=== PATIENT | female | born 1965 | race Caucasian/White ===

== ENCOUNTER 2020-10-13 17:42 | Emergency (ER) | payer MEDICARE, MEDICAID, SELFPAY ==
[2020-10-13 18:03] VITALS: BP 130/91; PULSE 98; RESP 18; TEMP 36.8; O2SAT 93
--- NOTE | 2020-10-13 18:04 | ED.DENTAL ---
HPI - Dental/Oral General Source: patient Mode of arrival: ambulatory Limitations: no limitations History of Present Illness HPI Narrative: Patient comes in with complaints of toothache at #30 TOOTH. She has had ongoing sharp pain, moderately severe, for the last 3 days. Tylenol has not helped the duncan at home. Complaint: tooth pain Onset (ago): day(s) Duration: constant Severity: moderate Relieving factors: nothing Exacerbating factors: chewing Context: history of dental caries Related Data Allergies Allergy/AdvReac Type Severity Reaction Status Date / Time No Known Allergies Allergy Verified 07/24/18 12:40 Review of Systems Constitutional: Constitutional: Reports no additional constitutional complaints Eyes: Eyes: Reports no additional eye complaints ENT: Reports system reviewed and no additional complaints, except as documented Cardiovascular: Cardiovascular: Reports no additional cardiovascular complaints Respiratory: Respiratory: Reports no additional respiratory complaints Gastrointestinal: Gastrointestinal: Reports no additional gastrointestinal complaints Genitourinary: Genitourinary: Reports no additional female genitourinary complaints Musculoskeletal: Musculoskeletal: Reports no additional musculoskeletal complaints Integumentary/Breasts: Skin/Breast: Reports system reviewed and no additional complaints, except as docu Neurologic: Reports system reviewed and no additional complaints, except as documented Psychiatric: Psychiatric: Reports no additional psychiatric complaints Endocrine: Endocrine: Reports no additional endocrine complaints Hematologic/Lymphatic: Hematologic/Lymphatic: Reports no additional hematologic/lymphatic complaints Allergic/Immunologic: Allergic/Immunologic: Reports no additional allergic/immunologic complaints [facility] Past Medical History Medical History Bipolar 1 disorder Surgical History Surgical History H/O: hysterectomy Family History Family History Father Leukemia Mother Heart disease Pacemaker Social History Social History (Updated 10/13/20 @ 19:23 by Joel Tapia MD) Alcohol intake: never Substance use: never Gender identity (if verbalized by the patient): Female Sexual Orientation (if Verbalized by the Patient): Straight or Heterosexual Exam Const: General: healthy appearing, no acute distress and alert Orientation/consciousness: patient oriented x3 HENMT: Head: normal to inspection Ears: external ears normal General nose exam: Normal external nose present Mouth: Yes Normal oral and palatal mucosa present Throat: posterior oropharynx normal Other: Tooth #30 appears to be abscessed. Eyes: Conjunctivae: conjunctivae normal Neck: Neck: normal visual inspection Chest: Chest palpation & inspection: normal inspection of the chest Resp: Effort & Inspection: normal respiratory effort Auscultation: clear to auscultation bilaterally Cardio: Rate: regular rate Rhythm: regular rhythm GI: GI Palp: Yes Soft to palpation (nontender) Back/Spine/Pelvis: Back: no CVA tenderness Skin: General skin exam: normal color Neuro: General: patient oriented x3 and moves all extremities Extrem: General: normal to inspection Psych: Appearance: grossly normal Mental Status: mental status grossly normal Thought content: Yes Normal thought content present Course Course Emergency Course: she was examined, given amoxicillin, and discharged with a script for amoxicillin. Vital Signs Vital signs: Vital Signs Temperature 36.8 C 10/13/20 18:03 Pulse Rate 98 10/13/20 18:03 Respiratory Rate 18 10/13/20 18:03 Blood Pressure 130/91 H 10/13/20 18:03 Pulse Oximetry 93 10/13/20 18:03 Temperature 36.8 C 10/13/20 18:03 Pulse Rate 98 10/13/20 18:03 Respiratory Rat
[2020-10-13] MEDS: AMOXICILLIN 500 MG CAPSULE 1000 MG PO (18:14)
== END 2020-10-13 18:20 | disposition home or self-care (01) ==
PROVIDERS: Emergency Provider Emergency Medicine; PCP Family Medicine
DX: K04.7 Periapical abscess without sinus (principal)
CPT/HCPCS: 99283; A9270

== ENCOUNTER 2022-04-05 14:00 | Emergency (ER) | payer MEDICARE, MEDICAID, SELFPAY ==
[2022-04-05 14:17] VITALS: BP 119/86; PULSE 84; RESP 16; TEMP 36.4; O2SAT 98
[2022-04-05 14:25] VITALS: O2SAT 98
--- NOTE | 2022-04-05 14:41 | ED.URI ---
HPI - URI/Sore Throat General Chief Complaint: Upper Respiratory Infection Stated Complaint: congestion-stage 4 brain cancer Time Seen by Provider: 04/05/22 14:19 History of Present Illness HPI Narrative: Patient is a 56-year-old female here for evaluation of sinus congestion, sore throat, dry cough and diffuse HAWKINS x 3 days. Wants to get viral swabs as she has immunotherapy tomorrow for brain cancer. She follows with a [facility] doctor at [facility]. 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 Denies chest pain, shortness of breath, fevers, chills, nausea or vomiting. Related Data Allergies Allergy/AdvReac Type Severity Reaction Status Date / Time No Known Allergies Allergy Verified 04/05/22 14:09 Review of Systems Review of Systems: Gen.: Denies fevers or chills Eyes: Denies eye pain or visual change ENT: Reports congestion, sore throat, headache Respiratory: Denies shortness of breath or cough CV: Denies chest pain or palpitations GI: Denies abdominal pain nausea, emesis or diarrhea : denies burning, urgency, frequency or hematuria Musculoskeletal: Denies back pain or muscle pain Neuro: Denies numbness, tingling, weakness or focal weakness Skin: Denies rash Except as documented, all other systems reviewed and negative [facility] Past Medical History Medical History Bipolar 1 disorder Surgical History Surgical History H/O: hysterectomy Family History Family History Father Leukemia Mother Heart disease Pacemaker Social History Social History (Updated 10/13/20 @ 19:23 by Joel Tapia MD) Alcohol intake: never Substance use: never Gender identity (if verbalized by the patient): Female Sexual Orientation (if Verbalized by the Patient): Straight or Heterosexual Exam Narrative: APPEARANCE: Chronically ill-appearing. EYES: amblyopia, patient states is chronic. HEENT: trace erythema to posterior oropharynx. Mucous membranes are moist. Normocephalic, atraumatic, OMM RESPIRATORY: No respiratory distress Clear to auscultation bilaterally with no rhonchi wheezing or rales. CARDIOVASCULAR: Regular rate and rhythm without murmurs rubs or gallops. ABDOMINAL: Soft, nontender, nondistended, no rebound or guarding MUSCULOSKELETAl: Moves all extremities. No clubbing, cyanosis or edema. NEURO: Awake and alert. Following commands, speech normal, no focal deficits SKIN:: Warm, dry. No rashes lesions or abrasions PSYCHIATRIC: Normal affect/mood, Course Vital Signs Vital signs: Vital Signs Temperature 97.6 F 04/05/22 14:17 Pulse Rate 84 04/05/22 14:17 Respiratory Rate 16 04/05/22 14:17 Blood Pressure 119/86 04/05/22 14:17 Pulse Oximetry 98 04/05/22 14:17 Oxygen Delivery Room Air 04/05/22 14:17 Temperature 97.6 F 04/05/22 14:17 Pulse Rate 82 04/05/22 15:40 Respiratory Rate 17 04/05/22 15:40 Blood Pressure 136/85 04/05/22 15:40 Pulse Oximetry 98 04/05/22 15:40 Oxygen Delivery Room Air 04/05/22 14:25 MDM - URI/Sore Throat MDM Narrative Medical decision making narrative: 56 year old female here for evaluation of congestion, rhinorrhea, headache, sore throat and dry cough. Requesting viral swabs before receiving immunotherapy tomorrow. She is chronically ill-appearing but has normal vital signs. Viral swabs are negative. Patient declines further workup with labs/imaging, which feel is reasonable, unlikely to show anything acute. She will be discharged home, advised her to contact her oncologist tomorrow for recommendations on receiving immunotherapy. Return precautions discussed. Lab Data Labs: Lab Results 04/05/22 Range/Units 14:14 Influenza A (RT-PCR) Negative (Negative) Influenza B (RT-PCR) Negative (Negative) RSV (RT-PCR) Negative (Negative) SARS-CoV-2 RNA (RT-PCR) Negative
[2022-04-05] MEDS: traMADol HCL (*CRX) 50 MG TABLET PO (14:47)
[2022-04-05 14:54] LABS: Influenza A QL RT-PCR Negative (Negative); Influenza B QL RT-PCR Negative (Negative); RSV RNA, RT-PCR Negative (Negative); SARS-CoV-2 RNA PCR Negative
[2022-04-05 15:40] VITALS: BP 136/85; PULSE 82; RESP 17; O2SAT 98
== END 2022-04-05 15:41 | disposition home or self-care (01) ==
PROVIDERS: Emergency Medicine; Emergency Provider Physician Assistant; PCP Family Medicine
DX: J30.9 Allergic rhinitis, unspecified (principal); Z20.822 Contact with and (suspected) exposure to COVID-19; C71.9 Malignant neoplasm of brain, unspecified; C78.02 Secondary malignant neoplasm of left lung; C78.01 Secondary malignant neoplasm of right lung; Z90.710 Acquired absence of both cervix and uterus
CPT/HCPCS: 87637; 99283; A9270

== ENCOUNTER 2022-09-09 12:50 | Emergency (ER) | payer MEDICARE, MEDICAID, SELFPAY ==
--- NOTE | ~2022-09-09 | CT_ITS ---
EXAMINATION: CT facial bones w con DATE: 09/09/22 INDICATION: Left facial swelling and pain. TECHNIQUE: Computed tomography (CT) of the facial bones and maxillofacial region was performed with 7 5 mL Omnipaque 350 intravenous contrast. Automated exposure control and iterative reconstruction tech dooque were employed. The dose-length product was 286 mGy-cm. COMPARISON: None. FINDINGS: There are old fracture deformities of the nasal bones. There is mucosal thickening in the p aranasal sinuses. There is a right mastoid effusion. There are carious lesions of many teeth. There a re periapical lucencies of right-sided maxillary and mandibular molars and a left mandibular molar. T here is severe osteoarthritis of left temporomandibular joint with loose bodies. IMPRESSION: 1. Extensive dental disease. Reviewed, dictated and finalized at location A.
[2022-09-09 18:04] LABS: Estimated Glomerular Filt Rate 42
[2022-09-10 12:29] LABS: Hematocrit 44.2 % (37.0-47.0); Hemoglobin 14.1 g/dL (12.0-15.0); Mean Corpuscular Volume 92.9 fl (80-100); Red Blood Count 4.76 M/mm3 (4.2-5.4); White Blood Count 15.4 K/mm3 (4.5-10.0)
[2022-09-10 12:30] LABS: Basophils Absolute Auto 0.1 K/mm3 (0.0-0.1); Basophils Percent Auto 0.3 % (0.2-1.2); Eosinophils Absolute Auto 0.1 K/mm3 (0-0.3); Eosinophils Percent Auto 0.5 % (0-4.4); Immature Granulocyte Absolute 0.05 K/mm3 (0.00-0.031); Immature Granulocyte Percent A 0.3 % (0-0.5); Lymphocytes Absolute Auto 2.36 K/mm3 (0.9-3.2); Lymphocytes Percent Auto 15.4 % (18.3-44.2); Mean Corpuscular HGB Conc 31.9 g/dl (32-36); Mean Corpuscular Hemoglobin 29.6 pg (26-34); Mean Platelet Volume 10.1 fl (7.4-10.4); Monocytes Absolute Auto 0.8 K/mm3 (0.1-0.6); Monocytes Percent Auto 5.1 % (2.6-8.5); Neutrophils Percent Auto 78.4 % (45.5-73.1); Platelet Count Result 204 k/mm3 (150-375); Red Cell Distribution Width 14.3 % (11.5-14.5)
[2022-09-10 12:31] LABS: Anion Gap 5 mmol/L (8-16); Aspartate Amino Transferase 24 U/L (14-36); Bilirubin,Total 0.5 mg/dL (0.2-1.3); Blood Urea Nitrogen 18 mg/dL (7-17); Calcium 8.8 mg/dL (8.4-10.2); Carbon Dioxide 33 mmol/L (22-30); Chloride 100 mmol/L (98-107); Estimated Glomerular Filt Rate 51; Glucose 109 mg/dL (65-110); Potassium 3.6 mmol/L (3.4-5.0); Sodium 138 mmol/L (137-145)
[2022-09-10 12:32] LABS: Alanine Aminotransferase 25 U/L (6-35); Albumin Level 4.5 g/dL (3.5-5.1); Alkaline Phosphatase 120 U/L (38-126); Total Protein 8.2 g/dL (6.3-8.2)
== END 2022-09-09 19:00 | disposition home or self-care (01) ==
LOC: ANHED 17:42
PROVIDERS: Emergency Provider Emergency Medicine; PCP Family Medicine
DX: K02.9 Dental caries, unspecified (principal); C71.9 Malignant neoplasm of brain, unspecified; Z79.69 Long term (current) use of other immunomodulators and immunosuppressants
CPT/HCPCS: 36415; 70487; 80053; 85025; 96374; 99284; J1885; Q9967